=== PATIENT | male | born 1945 | race Asian ===

== ENCOUNTER → 2016-05-27 | Outpatient (CLI) | payer OTHER, MEDICAID ==
[~2016-05-27] MED LIST: LISI-661 PO; TAMS0.4C32 PO
== END | disposition home or self-care (01) ==
LOC: RADPV 14:41
PROVIDERS: ATTEND Internal Medicine
DX: M17.12 Unilateral primary osteoarthritis, left knee (principal)

== ENCOUNTER → 2016-09-01 | Outpatient (CLI) | payer OTHER, MEDICAID | END | disposition home or self-care (01) | LOC: RADPV 10:02 | PROVIDERS: ATTEND Internal Medicine | DX: M10.9 Gout, unspecified (principal) | CPT/HCPCS: 93925 ==

== ENCOUNTER 2017-01-03 14:40 | Emergency (ER) | payer MEDICAID, OTHER ==
[~2017-01-03] VITALS: Ht 172.7 cm; Wt 81.8 kg
[2017-01-03] MEDS ORDERED: IBUPROFEN 600 MG TABLET PO ONE (15:45)
[2017-01-03 17:23] VITALS: BP 136/73
== END 2017-01-03 17:29 | disposition home or self-care (01) ==
LOC: EMS 14:41
DX: S40.012A Contusion of left shoulder, initial encounter (principal); I10 Essential (primary) hypertension; N40.0 Benign prostatic hyperplasia without lower urinary tract symptoms; W20.8XXA Other cause of strike by thrown, projected or falling object, initial encounter; Y92.89 Other specified places as the place of occurrence of the external cause; Y93.89 Activity, other specified; Y99.8 Other external cause status
CPT/HCPCS: 99284